=== PATIENT | male | born 1995 | race Two or more races ===

== ENCOUNTER 2020-03-19 09:47 | Emergency (ER) | payer SELFPAY ==
[~2020-03-19] VITALS: Ht 172.7 cm; Wt 70.3 kg
[2020-03-19 09:54] VITALS: BP 151/100
[2020-03-19] MEDS ORDERED: KETOROLAC TROMETH 60MG/2ML VIAL IM ONE (10:30)
== END 2020-03-19 11:10 | disposition home or self-care (01) ==
LOC: ER 09:47
DX: M54.41 Lumbago with sciatica, right side (principal)
CPT/HCPCS: 96372; 99283; J1885